=== PATIENT | male | born 1980 | race American Indian/Alaskan Native ===

== ENCOUNTER 2021-10-19 16:48 | Emergency (ER) | payer SELFPAY ==
[2021-10-19] MEDS ORDERED: ONDANSETRON 4 MG/2 ML INJ IV ONE (16:59)
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
[2021-10-19 17:35] LABS: Basophils % (Auto) 0.4 % (0.0-1.8); Hematocrit 47.8 % (35.5-45.6); Hemoglobin 15.3 gm/dl (11.8-15.2); Lymphocytes # (Auto) 1.5 K/mm3 (1.2-5.4); Lymphocytes % (Auto) 12.2 % (13.4-35.0); Mean Corpuscular HGB Conc 32 % (32-34); Mean Corpuscular Volume 88 fl (84-94); Monocytes # (Auto) 0.8 K/mm3 (0.0-0.8); Monocytes % (Auto) 6.7 % (0.0-7.3); Platelet Count 194 K/mm3 (140-440); Red Blood Count 5.46 M/mm3 (3.65-5.03); Red Cell Distribution Width 16.8 % (13.2-15.2)
[2021-10-19 18:02] LABS: Alanine Aminotransferase 23 units/L (7-56); Albumin 4.7 g/dL (3.9-5); BUN/Creatinine Ratio 17; Blood Urea Nitrogen 15 mg/dL (9-20); Calcium 9.1 mg/dL (8.4-10.2); Hemolysis Index 14
[2021-10-19 18:11] VITALS: BP 115/53
[2021-10-19] MEDS ORDERED: SODIUM CHLORIDE 0.9% 1000 ML 1,000 ML IV ONE (18:15)
[2021-10-19] MEDS ORDERED: MORPHINE 4 MG/1 ML INJ IV ONE (19:00)
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
== END 2021-10-19 21:43 | disposition home or self-care (01) ==
LOC: ED 16:48
DX: R10.9 Unspecified abdominal pain (principal); R11.2 Nausea with vomiting, unspecified; K21.9 Gastro-esophageal reflux disease without esophagitis; K29.20 Alcoholic gastritis without bleeding
CPT/HCPCS: 36415; 74177; 80053; 83690; 85025; 96374; 99284; J2270; J2405; J7030; Q9967; Q0162